=== PATIENT | female | born 1960 | race Caucasian/White ===

== ENCOUNTER 2023-02-04 02:34 | Day surgery (SDC) | payer BC, SELFPAY ==
[2023-01-20 13:56] VITALS: BMI 25.3
[2023-02-04 06:13] VITALS: BP 92/58; PULSE 79; RESP 16; TEMP 36.1; O2SAT 99; BMI 24.0
[2023-02-04] MEDS: LACTATED RINGERS 1,000 ML 150 ML IV CONT (06:35)
--- NOTE | 2023-02-04 07:22 | P.PNAN_ITS ---
Anes - Initial Pre Proc Eval Procedure: Operation Date: 02/04/23 07:30 Proposed Procedures p Screening Colonoscopy - Lenny Ruiz MD Date/Time: 02/04/23 07:22 Surgeon: Lenny Ruiz MD Pre Op Diagnosis: hx colon polyps Patient Data Age: 62 Gender: F Height: 1.63 m Weight: 63.6 kg Last Vital Signs Temp 97.0 F L 02/04/23 06:13 Pulse 79 02/04/23 06:13 Resp 16 02/04/23 06:13 BP 92/58 L 02/04/23 06:13 Pulse Ox 99 02/04/23 06:13 O2 Del Method Room Air 02/04/23 06:13 Allergies Allergy/AdvReac Type Severity Reaction Status Date / Time meperidine [From Demerol] Allergy Rash Verified 02/04/23 06:20 Sulfa (Sulfonamide Allergy Anaphylaxis Verified 02/04/23 06:20 Antibiotics) Home Medications Medication Instructions Recorded Confirmed Type alendronate 70 mg tablet 70 mg PO WEEKLY 01/20/23 02/04/23 History anastrozole 1 mg tablet 1 mg PO DAILY 01/20/23 02/04/23 History buspirone 7.5 mg tablet 7.5 mg PO BID 01/20/23 02/04/23 History carvedilol phosphate 80 mg 80 mg PO DAILY 01/20/23 02/04/23 History capsule,[id number] multiphase diclofenac sodium 75 mg 75 mg PO BID PRN Pain 01/20/23 02/04/23 History tablet,delayed release ferrous sulfate 325 mg (65 mg 325 mg PO DAILY 01/20/23 02/04/23 History iron) tablet,delayed release hydroxyzine HCl 10 mg tablet 20 mg PO HS PRN Anxiety 01/20/23 02/04/23 History levothyroxine 25 mcg tablet 25 mcg PO DAILY 01/20/23 02/04/23 History (Synthroid) magnesium 500 mg tablet 500 mg PO DAILY 01/20/23 02/04/23 History sacubitril 49 mg-valsartan 51 mg 1 tablet PO BID 01/20/23 02/04/23 History tablet (Entresto) venlafaxine 75 mg capsule,extended 75 mg PO DAILY 01/20/23 02/04/23 History release 24 hr vitamin E 1,000 unit tablet 1,000 tablet PO DAILY 01/20/23 02/04/23 History Patient hx anesthesia problems: none Family hx anesthesia problems: none Results Review: All pre-operative results and documents have been reviewed as part of the pre- operative evaluation. FOR[facility], [facility] Social History Social History Smoking status: Never smoker Substance use type: does not use Living arrangements: with family Spiritual care concerns: No Anes - Eval Final PreProcedure Day of Procedure 02/04/23 07:22 Patient weight: normal Heart: regular rate and rhythm Lungs: clear to auscultation Airway: Mallampati scale class II Neurological: alert and oriented Last oral intake: >/= 8 hours ASA classification: III Emergent: no Anesthetic plan: proceed Anesthesia type and monitoring: general GIVS and standard monitoring Results Review: All pre-operative results and documents have been reviewed as part of the pre- operative evaluation. Informed Consent: The patient's anesthetic plan and its attendant risks and benefits were discussed with the patient/family/POA. Questions were solicited and answers provided to the satisfaction of the patient/family/POA.
--- NOTE | 2023-02-04 07:37 | PM.HPGS ---
History of Present Illness History of Present Illness Consent: Risks, benefits, and alternatives have been discussed and questions answered. Patient agrees to proceed with procedure. Chief complaint: hx colon polyps Narrative: Danette Pena is a 62 year old female with colon polyp 5 years ago Review of Systems Constitutional: Constitutional: Denies headache(s) and Denies weakness Eyes: Eyes: Denies blurry vision ENT: Reports Normal hearing present, Denies headache(s) and Denies neck pain Cardiovascular: Cardiovascular: Denies chest pain and Denies dyspnea Respiratory: Respiratory: Denies dyspnea Gastrointestinal: Gastrointestinal: Reports no additional gastrointestinal complaints Genitourinary: Genitourinary: Denies dysuria Musculoskeletal: Musculoskeletal: Denies neck pain Integumentary/Breasts: Skin/Breast: Denies dry skin Neurologic: Reports Normal hearing present, Denies headache(s) and Denies weakness Psychiatric: Psychiatric: Denies anxiety Endocrine: Endocrine: Denies change in body appearance Hematologic/Lymphatic: Hematologic/Lymphatic: Denies easy bleeding Allergic/Immunologic: Allergic/Immunologic: Denies urticaria PMFSH Past Medical History Medical History (Updated 02/04/23 @ 07:37 by Lenny Ruiz MD) Colon polyp Social History Social History Smoking status: Never smoker Substance use type: does not use Living arrangements: with family Spiritual care concerns: No Meds Home Medications and Allergies Home Medications Medication Instructions Recorded Confirmed Type alendronate 70 mg tablet 70 mg PO WEEKLY 01/20/23 02/04/23 History anastrozole 1 mg tablet 1 mg PO DAILY 01/20/23 02/04/23 History buspirone 7.5 mg tablet 7.5 mg PO BID 01/20/23 02/04/23 History carvedilol phosphate 80 mg 80 mg PO DAILY 01/20/23 02/04/23 History capsule,[id number] multiphase diclofenac sodium 75 mg 75 mg PO BID PRN Pain 01/20/23 02/04/23 History tablet,delayed release ferrous sulfate 325 mg (65 mg 325 mg PO DAILY 01/20/23 02/04/23 History iron) tablet,delayed release hydroxyzine HCl 10 mg tablet 20 mg PO HS PRN Anxiety 01/20/23 02/04/23 History levothyroxine 25 mcg tablet 25 mcg PO DAILY 01/20/23 02/04/23 History (Synthroid) magnesium 500 mg tablet 500 mg PO DAILY 01/20/23 02/04/23 History sacubitril 49 mg-valsartan 51 mg 1 tablet PO BID 01/20/23 02/04/23 History tablet (Entresto) venlafaxine 75 mg capsule,extended 75 mg PO DAILY 01/20/23 02/04/23 History release 24 hr vitamin E 1,000 unit tablet 1,000 tablet PO DAILY 01/20/23 02/04/23 History Allergies Allergy/AdvReac Type Severity Reaction Status Date / Time meperidine [From Demerol] Allergy Rash Verified 02/04/23 06:20 Sulfa (Sulfonamide Allergy Anaphylaxis Verified 02/04/23 06:20 Antibiotics) Vital Signs Vital Signs - 24 hr 02/04/23 06:13 Temperature 97.0 F L Pulse Rate 79 Respiratory Rate 16 Blood Pressure 92/58 L Pulse Oximetry 99 Oxygen Delivery Room Air Exam Const: General: comfortable and no acute distress HENMT: Face/Nose/Sinus: Normal nares present Eyes: General: appearance normal, both eyes and all related structures Neck: Neck: no JVD Resp: Auscultation: clear to auscultation bilaterally Cardio: Rate: regular rate Rhythm: regular rhythm GI: Inspection: non-distended GI Palp: Yes Soft to palpation Skin: General skin exam: normal color Neuro: General: gait normal Speech: normal speech Extrem: General: normal to inspection Psych: Mental Status: mental status grossly normal Assessment and Plan Assessment and plan (1) Colon polyp: Code(s): K63.5 - Polyp of colon Status: Acute Assessment and Plan: colonoscopy
[2023-02-04 07:52] VITALS: BP 88/59; PULSE 80; RESP 24; O2SAT 93
[2023-02-04 08:02] VITALS: BP 85/57; PULSE 80; RESP 18; O2SAT 98
[2023-02-04 08:12] VITALS: BP 96/66; PULSE 80; RESP 20; O2SAT 98
== END 2023-02-04 08:18 | disposition home or self-care (01) ==
PROVIDERS: PCP Internal Medicine; Visit Provider Internal Medicine Gastroenterology
PROC: 0DJD8ZZ Inspection of Lower Intestinal Tract, Via Natural or Artificial Opening Endoscopic (ICD-10-PCS; CPT 45378; principal; 2023-02-04 07:30)
DX: Z12.11 Encounter for screening for malignant neoplasm of colon (principal); K64.8 Other hemorrhoids; Z86.010 Personal history of colon polyps; Z79.811 Long term (current) use of aromatase inhibitors
CPT/HCPCS: 45378; J2704; J7120